=== PATIENT | female | born 1985 | race American Indian/Alaskan Native ===

== ENCOUNTER 2017-02-27 16:27 | Emergency (ER) | payer SELFPAY ==
--- NOTE | 2017-02-27 16:51 | Emergency Department Report ---
Chief Complaint: Dizziness Stated Complaint: DIZZINESS, RT WRIST ,LWR BACK Time Seen by Provider: 02/27/17 16:49 - HPI History of Present Illness: PT c/o feeling weak x 1 week. PT c/o R wrist pain. 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 PT states she had a cycle this month but it only lasted 3 days. - ROS Review of Systems: + fatigue + dizziness + menstrual changes - Exam Physical Exam: PT looks well, non toxic. No acute distress in triage gcs 15 MSE screening note: Focused history and physical exam performed. Due to findings the following was ordered: labs ED Disposition for MSE Condition: Stable
[2017-02-27 16:56] VITALS: BP 133/83
[2017-02-27 17:18] LABS: Basophils % (Auto) 0.3 % (0.0-1.8); Hematocrit 34.6 % (30.3-42.9); Hemoglobin 10.8 gm/dl (10.1-14.3); Mean Corpuscular HGB Conc 31 % (30-34); Mean Corpuscular Volume 74 fl (79-97); Platelet Count 293 K/mm3 (140-440); Red Blood Count 4.71 M/mm3 (3.65-5.03); Red Cell Distribution Width 17.2 % (13.2-15.2); White Blood Count 9.9 K/mm3 (4.5-11.0)
[2017-02-27 17:20] LABS: Mean Corpuscular Hemoglobin 23 pg (28-32)
[2017-02-27 17:38] LABS: Alanine Aminotransferase 10 units/L (7-56); Albumin 4.2 g/dL (3.9-5); Albumin/Globulin Ratio 1.4 %; Alkaline Phosphatase 51 units/L (35-129); Anion Gap 17 mmol/L; Blood Urea Nitrogen 9 mg/dL (7-17); Carbon Dioxide 24 mmol/L (22-30); Chloride 101.9 mmol/L (98-107); Glucose 91 mg/dL (65-100); Potassium 3.9 mmol/L (3.6-5.0); Sodium 139 mmol/L (137-145); Total Protein 7.2 g/dL (6.3-8.2)
[2017-02-27 17:52] LABS: Bilirubin,Urine NEG (Negative); Blood,Urine NEG (Negative); Ketones,Urine NEG (Negative); Leukocyte Esterase,Urine SM (Negative); Nitrite,Urine NEG (Negative); Protein,Urine <15 mg/dL mg/dL (Negative)
--- NOTE | 2017-02-27 19:40 | Emergency Department Report ---
ED General Adult HPI - General Chief complaint: Weakness Stated complaint: DIZZINESS, RT WRIST ,LWR BACK Time Seen by Provider: 02/27/17 16:49 Source: patient Mode of arrival: Ambulatory Limitations: No Limitations - History of Present Illness Initial comments: This is a 31-year-old female nontoxic, well nourished in appearance, no acute signs of distress presents to the ED complaining of the visit ED complaining of weakness, fatigue, and dizziness 1 week. Patient denies any chest pain or shortness breath. Patient stated she does crave ice chips. Denies syncope or near-syncope. Patient denies any chest pain, shortness of breath, nausea, head trauma, vomiting, abdominal pain, fever, chills, stiff neck, vaginal bleeding, constipation, diarrhea, hemoptysis, headache, blurry vision, numbness or tingling. Patient stated she is unaware if she is currently . Last menstrual cycle 02/03/2017. Denies any allergies or past medical history. MD Complaint: weakness/dizziness -: Gradual, week(s) (1) Radiation: non-radiation Severity scale (0 -10): 0 Quality: other (dizziness) Consistency: intermittent Improves with: none Worsens with: none Associated Symptoms: denies other symptoms. denies: confusion, chest pain, cough, diaphoresis, fever/chills, headaches, loss of appetite, malaise, nausea/ vomiting, rash, seizure, shortness of breath, syncope, weakness Treatments Prior to Arrival: none - Related Data Previous Rx's Medication Instructions Recorded Last Taken Type Ferrous Sulfate [Feosol 325 MG tab] 325 mg PO QDAY #30 tablet 02/27/17 Unknown Rx Nitrofurantoin [place]/M-Cryst 100 mg PO Q12HR #14 capsule 02/27/17 Unknown Rx [Macrobid CAP] Allergies Allergy/AdvReac Type Severity Reaction Status Date / Time No Known Allergies Allergy Unverified 02/27/17 16:50 ED Review of Systems ROS: Stated complaint: DIZZINESS, RT WRIST ,LWR BACK Other details as noted in HPI Constitutional: denies: chills, fever Eyes: denies: eye pain, eye discharge, vision change ENT: denies: ear pain, throat pain Respiratory: denies: cough, shortness of breath, wheezing Cardiovascular: denies: chest pain, palpitations Endocrine: no symptoms reported Gastrointestinal: denies: abdominal pain, nausea, diarrhea Genitourinary: denies: urgency, dysuria, discharge Musculoskeletal: denies: back pain, joint swelling, arthralgia Skin: denies: rash, lesions Neurological: denies: headache, weakness, paresthesias Psychiatric: denies: anxiety, depression Hematological/Lymphatic: denies: easy bleeding, easy bruising ED Past Medical Hx - Past Medical History Previous Medical History?: No - Surgical History Past Surgical History?: No - Social History Smoking Status: Current Every Day Smoker Substance Use Type: None - Medications Home Medications: Home Medications Medication Instructions Recorded Confirmed Last Taken Type Ferrous Sulfate [Feosol 325 MG tab] 325 mg PO QDAY #30 tablet 02/27/17 Unknown Rx Nitrofurantoin [place]/M-Cryst 100 mg PO Q12HR #14 capsule 02/27/17 Unknown Rx [Macrobid CAP] ED Physical Exam - General Limitations: No Limitations General appearance: alert, in no apparent distress - Head Head exam: Present: atraumatic, normocephalic, normal inspection - Eye Eye exam: Present: normal appearance, PERRL, EOMI. Absent: scleral icterus, conjunctival injection, nystagmus, periorbital swelling, periorbital tenderness - ENT ENT exam: Present: normal exam, normal orophraynx, mucous membranes moist, TM's normal bilaterally, normal external ear exam - Neck Neck exam: Present: normal inspection, full ROM. Absent: tenderness, meningismus, lymphadenopathy, thyromegaly - Respiratory Respiratory exam: Present: normal lung sounds bilaterally. Absent: respiratory distress, wheezes, rales, rhonchi, stridor, chest wall tenderness, accessory muscle use, decreased breath sounds, prolonged expiratory - Cardiovascular Cardiovascular Exam: Present: regular rate, normal rhythm, normal heart sounds. Absent: bradycardia, tachycardia, irregular rhythm, systolic murmur, diastolic murmur, rubs, gallop - GI/Abdominal GI/Abdominal exam: Present: soft, normal bowel sounds. Absent: distended, tenderness, guarding, rebound, rigid, diminished bowel sounds - Rectal Rectal exam: Present: deferred, heme (-) stool, other (tomasa Medley RN presents during exam). Absent: heme (+) stool, black stool, bloody stool, hemorrhoids - Extremities Exam Extremities exam: Present: normal inspection, full ROM, normal capillary refill. Absent: tenderness, pedal edema, joint swelling, calf tenderness - Back Exam Back exam: Present: normal inspection, full ROM. Absent: tenderness, CVA tenderness (R), CVA tenderness (L), muscle spasm, paraspinal tenderness, vertebral tenderness, rash noted - Neurological Exam Neurological exam: Present: alert, oriented X3, CN II-XII intact, normal gait, reflexes normal - Expanded Neurological Exam Expanded Patient oriented to: Present: person, place, time Speech: Present: fluid speech Cranial nerves: EOM's Intact: Normal, Gag Reflex: Normal, Tongue Deviation: Normal, Nystagmus: Normal, Facial Sensation: Normal, Facial Palsy with Forehead Movement: Normal, Facial Palsy without Forehead Movement: Normal Cerebellar function: Finger to Nose: Normal, Heel to [place]o: Normal, Romberg: Normal Upper motor neuron: Nik Neglect: Normal, Pronator Drift: Normal, Babinski Sign : Normal, Sensory Extinction: Normal Sensory exam: Upper Extremity Light Touch: Normal, Upper Extremity Pin Prick: Normal, Upper Extremity Temperature: Normal, UE 2 Point Discrimination: Normal, Lower Extremity Light Touch: Normal, Lower Extremity Pin Prick: Normal, Lower Extremity Temperature: Normal, LE 2 Point Discrimination: Normal Motor strength exam: RUE: 5, LUE: 5, RLE: 5, LLE: 5 DTR: bicep (R): 2+, bicep (L): 2+, tricep (R): 2+, tricep (L): 2+, knee (R): 2+ , knee (L): 2+, ankle (R): 2+, ankle (L): 2+ Best Eye Response (Heather): (4) open spontaneously Best Motor Response ([place]ather): (6) obeys commands Best Verbal Response ([place]): (5) oriented [place] Total: 15 - Psychiatric Psychiatric exam: Present: normal affect, normal mood - Skin Skin exam: Present: warm, dry, intact, normal color. Absent: rash ED Course Vital Signs 02/27/17 16:50 Temperature 97.6 F Pulse Rate 74 Blood Pressure 133/83 O2 Sat by Pulse 100 Oximetry - Reevaluation(s) Reevaluation #1: 02/27/17 19:41 Patient is speaking in full sentences with no signs of distress. ED Medical Decision Making - Lab Data Result diagrams: 02/27/17 17:06 02/27/17 17:06 - Medical Decision Making ED course; this is a 31-year-old female that presented with dizziness, fatigue, and weakness He was examined myself. Patient is stable. CBC, BMP, UA, antacids as has been obtained. CBC suggest patient is low in MCV, MCH, and elevated RDW with clinical findings of dizziness, fatigue, craving for ice chips, and weakness, which suggests iron deficiency anemia. Hemoccult is negative. Patient notified of lab results with no patient's noted. Patient be treated with iron by mouth at discharge with a follow-up with a primary care doctor. Patient also educated on high Rich iron foods. Patient instructed to follow up with primary care doctor in 3-5 days or symptoms worsen or continue return to emergency room as soon as possible. UA indicates elevated wbc's with leukocyte esterase and patient be treated with Macrobid. At time time of discharge, the patient does not seem toxic or ill in appearance. No acute signs of distress noted. Patient agrees to discharge treatment plan of care. No further questions noted by the patient. Critical care attestation.: If time is entered above; I have spent that time in minutes in the direct care of this critically ill patient, excluding procedure time. ED Disposition Clinical Impression: Dizziness, Weakness Fatigue Qualifiers: Fatigue type: unspecified Qualified Code(s): R53.83 - Other fatigue Disposition: DC-01 TO HOME OR SELFCARE Is pt being admited?: No Does the pt Need Aspirin: No Condition: Stable Instructions: Iron Rich Diet (ED), Iron Deficiency Anemia (ED), Weakness (ED), Urinary Tract Infection in Women (ED), Dizziness (ED) Additional Instructions: Follow-up with a primary care doctor in 3-5 days or if symptoms worsen and continue presents to emergency room as soon as possible. Prescriptions: Ferrous Sulfate [Feosol 325 MG tab] 325 mg PO QDAY #30 tablet Nitrofurantoin [place]/M-Cryst [Macrobid CAP] 100 mg PO Q12HR #14 capsule Referrals: PRIMARY MD JEROME [Primary Care Provider] - 3-5 Days PAMELLA YU MD [Staff Physician] - 3-5 Days [facility] [Outside] - 3-5 Days [facility] [Outside] - 3-5 Days Forms: Work/School Release Form(ED)
== END 2017-02-27 20:37 | disposition home or self-care (01) ==
LOC: ED 16:27
DX: R42 Dizziness and giddiness (principal); R53.1 Weakness; R53.83 Other fatigue; F17.200 Nicotine dependence, unspecified, uncomplicated
CPT/HCPCS: 36415; 80053; 81001; 84703; 85025; 99283

== ENCOUNTER 2019-04-26 22:04 | Emergency (ER) | payer OTHER ==
[2019-04-26 22:25] VITALS: BP 117/66
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
[2019-04-26] MEDS ORDERED: DECADRON IM ONE (23:01)
[2019-04-26] MEDS ORDERED: TYLENOL PO ONE (23:02)
[2019-04-26] MEDS ORDERED: BENADRYL PO ONE (23:02)
[2019-04-26] MEDS ORDERED: REGLAN PO ONE (23:02)
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
== END 2019-04-26 23:59 | disposition home or self-care (01) ==
LOC: ED 22:04
DX: J32.9 Chronic sinusitis, unspecified (principal); F17.200 Nicotine dependence, unspecified, uncomplicated; Z79.899 Other long term (current) drug therapy
CPT/HCPCS: 36415; 70450; 84703; 96372; 99284; J1100